=== PATIENT | female | born 1980 | race Caucasian/White ===

== ENCOUNTER → 2017-01-07 | Outpatient (CLI) | payer OTHER ==
[~2017-01-07] MED LIST: ASPIR 8181 M1 PO; COMPLETENATE T1 EACH PO; ENDOCET 5-3251 EACH PO; INSULIN PUMP; MOTRIN800 MG PO; Procardia XL,Adalat PO; Tums PO; ZITHROMAX Z-PA250 MG
== END | disposition home or self-care (01) ==
LOC: CDC 10:09
DX: R94.31 Abnormal electrocardiogram [ECG] [EKG] (principal); M65.341 Trigger finger, right ring finger
CPT/HCPCS: 93000